=== PATIENT | male | born 1990 | race Caucasian/White ===

== ENCOUNTER → 2016-04-22 | Outpatient (CLI) | payer OTHER ==
[~2016-04-22] MED LIST: IOPAMIDOL (ISOVUE-300) 100 ML BTL IV ONE
--- NOTE | 2016-04-22 17:48 | CT ---
CT Scan of the Abdomen and Pelvis (With Contrast) at 1641 hours History: Appendicitis February 2016 treated with antibiotic therapy. Preop for elective appendectomy . COMPARISON: CT February 2016. Technique: Axial computed tomographic images of the abdomen and pelvis were obtained with the unevent ful intravenous administration of 90 mL Isovue-300 contrast. Additional oral contrast.. Dose reductio n techniques were utilized. CT Abdomen Findings: Lung bases: Normal. Liver: Normal. Biliary system: No obstruction. Spleen: Normal. Pancreas: Normal. Adrenals: Normal. Kidneys: No obstruction or solid masses.. Abdominal Aorta: No aneurysm. CT pelvis findings: Appendicolith noted in the appendix with mild appendiceal thickening up to 10 mm significant improvem ent since previous study. The previous inflammatory process involving the cecum and appendix has almo st completely resolved. No evidence of drainable abscess. No pelvic fluid collections. Few para-aorti c retroperitoneal benign-appearing lymph nodes. Impression: 1. Significant improvement appendicitis with residual appendicolith and mild thickening of the append ix measuring up to 10 mm. 2. No drainable abscess, pneumoperitoneum or bowel obstruction. Findings and recommendations discussed with Dr. Baldemar Beyer today at 1740 hour. Final report concur s with initial preliminary interpretation. A Document Only message has been documented for Baldemar Beyer MD in the [facility] system on 04/22/2016 17:46, Message ID [id number].
== END ==
LOC: FIMAGING 16:02
PROVIDERS: ATTEND Surgery
DX: Z01.818 Encounter for other preprocedural examination (principal); R10.31 Right lower quadrant pain
CPT/HCPCS: Q9967

== ENCOUNTER 2016-04-30 07:59 | Day surgery (SDC) | payer OTHER ==
--- NOTE | 2016-04-29 15:28 | GHP ---
[f rep st] HISTORY AND PHYSICAL DATE OF ADMISSION: 04/30/2016 HISTORY AND PHYSICAL: Patient is a 25-year-old male, who was recently treated in the hospital for a chronic appendicitis. He shows up in our office to discuss a possible appendectomy. He recently had a CAT scan done ,which demonstrated no drainable abscess, improvement in the appendicitis with resid ual appendicoliths. Patient reports he has had no fevers. He is feeling fine overall, tolerating re gular diet, normal bowel movements. Patient has not had any abdominal surgeries in the past. ALLERGIES: None. MEDICATIONS: None. PAST MEDICAL HISTORY: None. REVIEW OF SYSTEMS: He had a complete 10-point negative review of systems. SOCIAL HISTORY: Nonsmoker, student at . PHYSICAL EXAM: GENERAL: Patient is a pleasant male, in no apparent distress. HEAD AND NECK: Normo cephalic, atraumatic. CHEST: CTA bilaterally. HEART: Regular rhythm and rate. ABDOMEN: Soft, no ntender. No pain in all 4 quadrants to palpation. EXTREMITIES: No lower extremity edema. RADIOLOGY: CT scan was reviewed by Dr. Beyer, please see HPI. IMPRESSION: A 25-year-old male with history of chronic appendicitis. RECOMMENDATION: Laparoscopic appendectomy was discussed with the patient in detail, including risks of bowel injury, bleeding, infection, abscess formation requiring further procedures, nerve injury, u reter injury. Patient elects to proceed with scheduling surgery for 04/30/2016. /[id number]/MODL
[~2016-04-30 07:59] MED LIST changes: +BUPIVACAINE 0.5% 30 ML SDV ONE; +HEPARIN 1000 UNIT/1 ML MDV ONE; -IOPAMIDOL (ISOVUE-300) 100 ML BTL IV ONE; +ceFAZolin 1 GM/5 ML SYR ONE; +cefOXitin SODIUM 2 GM in D5W 100 ML IV ONE
[2016-04-30] MEDS ORDERED: LIDOCAINE 1% 5 ML SDV ONE (08:26)
[2016-04-30] MEDS ORDERED: fentaNYL 100 MCG/2 ML INJ ONE ×2 (09:11→10:45)
[2016-04-30] MEDS ORDERED: LIDOCAINE 2% 5 ML SDV ONE (09:12)
[2016-04-30] MEDS ORDERED: PROPOFOL 200 MG/20 ML VIAL ONE (09:12)
[2016-04-30] MEDS ORDERED: ROCURONIUM 50 MG/5 ML VIAL ONE (09:14)
[2016-04-30] MEDS ORDERED: DEXAMETHASONE 4 MG/ML VIAL ONE (09:15)
[2016-04-30] MEDS ORDERED: ONDANSETRON 4 MG/2 ML VIAL ONE (09:15)
[2016-04-30] MEDS ORDERED: MIDAZOLAM 2 MG/2 ML VIAL ONE (09:16)
[2016-04-30] MEDS ORDERED: SUGAMMADEX SODIUM 200 MG/2 ML VIAL IVP ONE (10:06)
[2016-04-30] MEDS ORDERED: HYDROCODONE/APAP 5/325 TAB ONE (11:18)
--- NOTE | 2016-05-15 21:40 | GOP ---
[f rep st] OPERATIVE REPORT DATE OF OPERATION: 04/30/2016 SURGEON: Baldemar Beyer MD BRASS POLISHER: GEENA Stokes ANESTHESIA: General endotracheal. ANESTHESIOLOGIST: Dr. Moreno PREOPERATIVE DIAGNOSIS: Chronic appendicitis. POSTOPERATIVE DIAGNOSIS: Chronic appendicitis. PROCEDURE PERFORMED: Laparoscopic appendectomy. FINDINGS: Patient was found to have a thickened appendix with filmy adhesions, but no evidence of p erforation or residual abscess at this time. ESTIMATED BLOOD LOSS: Less than 2 cc. DESCRIPTION OF PROCEDURE: Patient taken to the operating room, where he received satisfactory gener al endotracheal anesthesia by Dr. Moreno. He was placed in the supine position, and prepped an d draped in the usual sterile fashion. Periumbilical incision was made. Veress needle was inserted. Pneumoperitoneum was established. A trocar was introduced. Laparoscope introduced. Good visualization was obtained. Two other trocars were placed in the lower abdomen under direct vision. Cecum was rotated medially. The appendix was easily visualized. Some filmy adhesions were taken do wn with the Harmonic scalpel, and the mesoappendix was divided with the Harmonic scalpel until the b ase was skeletonized. It was then divided with the endo MARICEL stapler and placed in a specimen bag an d extracted through the upper midline port site. Hemostasis was assured. The wound was irrigated. Trocars were removed under direct vision. Trocar sites were closed with 0 Vicryl for the fascia, 4-0 Monocryl subcuticular stitch for the skin. All layers were infiltrated with 0.5% Marcaine. There were no complications. /[id number]/MODL
== END 2016-04-30 12:20 | disposition home or self-care (01) ==
LOC: FSGY 07:59
PROVIDERS: ATTEND Surgery
PROC: 0DTJ4ZZ Resection of Appendix, Percutaneous Endoscopic Approach (ICD-10-PCS; principal; 2016-04-30 09:45)
DX: K36 Other appendicitis (principal); E66.9 Obesity, unspecified; Z68.35 Body mass index [BMI] 35.0-35.9, adult
CPT/HCPCS: J0694; J1100; J2250; J2405; J2704; J3010